=== PATIENT | male | born 1950 | race Caucasian/White ===

== ENCOUNTER 2017-11-03 10:19 | Outpatient (CLI) | payer OTHER ==
--- NOTE | 2017-11-03 15:05 | Diagnostic Imaging Report ---
Indication: Reason For Exam: ABD PAIN Technique: Hansen-scale and duplex images of the upper abdomen were obtained Comparison: 11/07/2015 Findings: Gallbladder is unremarkable, without stones, wall thickening, nor pericholecystic fluid. Common bile duct measures 5 mm in diameter. No intrahepatic biliary ductal dilatation. There are demonstrates equivocally slightly increased echogenicity, no focal abnormality. Previously described hepatic surface nodularity is less apparent currently. Portal vein and hepatic veins are patent. Pancreas is unremarkable. Spleen is unremarkable. Left kidney measures 14.3 cm in length. Right kidney measures 12.3 cm length. Both kidneys demonstrate normal echogenicity. There is no hydronephrosis. There are bilateral renal cysts again demonstrated . Non-aneurysmal abdominal aorta . Impression: Mildly increased hepatic echogenicity, nonspecific but suggesting hepatocellular disease, also previously described. Note that previously described hepatic surface nodularity is less apparent currently; significance of this is uncertain Bilateral renal cysts. Negative for gallstones or dilated duct
== END 2017-11-03 12:19 | disposition home or self-care (01) ==
LOC: ULS 10:19
DX: B19.20 Unspecified viral hepatitis C without hepatic coma (principal); N28.1 Cyst of kidney, acquired
CPT/HCPCS: 76700

== ENCOUNTER → 2018-11-03 | Outpatient (CLI) | payer OTHER ==
--- NOTE | 2018-11-03 12:32 | Diagnostic Imaging Report ---
Indication: Abdominal pain Technique: Hansen-scale and duplex images of the upper abdomen were obtained Comparison: 11/03/2017 Findings: Gallbladder demonstrates no stones, generalized wall thickening, nor pericholecystic fluid. There is a very focal area of wall thickening on the lateral wall which could represent a tiny polyp, versus a prominent mucosal fold, not evident previously. Sonographic Beatty's sign is negative. Common bile duct measures 5 mm in diameter. No intrahepatic biliary ductal dilatation. Liver demonstrates normal echogenicity, no focal abnormality. It demonstrates equivocal slight surface nodularity Portal vein and hepatic veins are patent. Pancreas is unremarkable. Spleen is unremarkable. Left kidney measures 12.5 cm in length. Right kidney measures 12.4 cm length. Both kidneys demonstrate normal echogenicity. There is no hydronephrosis. Both kidneys demonstrate multiple cysts no ascites fluid demonstrated. Non-aneurysmal abdominal aorta . Impression: As previously, there is equivocal slight hepatic surface nodularity, if real could indicate early cirrhotic change Negative for gallstones or dilated ducts Focal area of slight wall thickening of the gallbladder, could represent a very small polyp Incidental finding of bilateral renal cysts
== END | disposition home or self-care (01) ==
LOC: ULS 11:23
DX: R10.9 Unspecified abdominal pain (principal); N28.1 Cyst of kidney, acquired
CPT/HCPCS: 76700

== ENCOUNTER 2019-11-02 08:42 | Outpatient (CLI) | payer OTHER ==
--- NOTE | 2019-11-02 10:14 | Diagnostic Imaging Report ---
Indication: Abdominal pain Technique: Grayscale and duplex imaging of the abdomen was performed Comparison: 11/03/2028 Findings: Equivocal slight surface nodularity of the liver suggesting early cirrhotic changes. No focal hepatic mass lesion identified sonographically. Imaged hepatic veins appear patent. Main portal vein is patent with normal direction of flow. Gallbladder is not distended. A 3 mm echogenic focus is noted adherent to the gallbladder wall suggesting a small gallbladder polyp or adherent sludge. No color flow is noted within this structure upon interrogation with color Doppler. No sonographic evidence to suggest cystitis. Sonographic Beatty sign reported as negative. No intrahepatic biliary ductal dilatation. Common bile duct measures 6 mm diameter, within normal limits. Imaged portions of the pancreas unremarkable in appearance. Kidneys demonstrate normal echogenicity. Simple cysts are noted bilaterally, larger cyst on the right measures approximately 5 cm in diameter. Largest cyst on the left measures approximately 2.2 cm diameter. There is no hydronephrosis or sonographically appreciable renal stone. Spleen is normal in size. No focal splenic lesion appreciated sonographically. No ascites is demonstrated. Portions of the mid abdominal aorta are borderline dilated measuring 2.9 cm AP. Iliac arteries appear normal in caliber. IMPRESSION: * Equivocal slight hepatic surface nodularity which may suggest early cirrhotic changes. No sonographically appreciable hepatic mass lesion. * 3 mm echogenic structure adherent to the gallbladder wall without internal vascularity. This may represent small gallbladder polyp and is stable compared to the prior exam. No evidence of acute cholecystitis. 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 * Bilateral renal cysts.
== END 2019-11-02 10:42 | disposition home or self-care (01) ==
LOC: ULS 08:42
DX: R10.9 Unspecified abdominal pain (principal); N28.1 Cyst of kidney, acquired; K82.4 Cholesterolosis of gallbladder
CPT/HCPCS: 76700